=== PATIENT | female | born 1965 | race Caucasian/White ===

== ENCOUNTER 2019-06-03 09:34 | Outpatient (CLI) | payer OTHER ==
[2019-06-03] MEDS ORDERED: BUFFERED LIDOCAINE 10 ML SYRINGE ONE (09:47)
[2019-06-03] MEDS ORDERED: IOTHALAMATE MEGLUMINE 50 ML VIAL ONE (09:47)
[2019-06-03] MEDS ORDERED: GADOBUTROL 10 MMOL/10 ML VIAL ONE (09:47)
[2019-06-03] MEDS ORDERED: IOTHALAMATE MEGLUMINE 50 ML VIAL IVP ONE (11:51)
[2019-06-03] MEDS ORDERED: BUFFERED LIDOCAINE 10 ML SYRINGE IU ONE (11:51)
[2019-06-03] MEDS ORDERED: GADOBUTROL 10 MMOL/10 ML VIAL IVP ONE (11:51)
--- NOTE | 2019-06-03 13:26 | XRAY Report ---
Reason: PAIN IN KNEE Procedure Date: 06/03/2019 Accession Number: [id number] / [id number] Procedure: FL - Arthrogram Needle Placement CPT Code: Final Report FULL RESULT: EXAM: RIGHT KNEE ARTHROGRAPHIC INJECTION WITH FLUOROSCOPIC GUIDANCE EXAM DATE: 06/03/2019 10:11 AM. CLINICAL HISTORY: PAIN IN KNEE. COMPARISON: None. TECHNIQUE: The risks, benefits, and alternatives of the procedure were discussed with the patient. All questions were answered. Written and verbal consent were obtained. The right knee joint was marked under fluoroscopy and prepped and draped in a sterile manner. Local anesthesia was performed with 1% lidocaine. A 22-gauge needle was then inserted into the knee joint. 20 mL of a solution containing iodinated contrast, 1% lidocaine, and a 1:200 dilution of gadolinium contrast was then injected. The needle was removed without immediate complication. Other: None. Fluoroscopy Time: 1 minute 32 seconds. Number of Images: 2. FINDINGS: Bones and joints: No fracture or subluxation. Injection: Fluoroscopic images demonstrate needle placement and contrast in the knee joint. IMPRESSION: Successful fluoroscopically guided arthrographic injection of the right knee prior to MRI. RADIA
--- NOTE | 2019-06-03 14:34 | MRI Report ---
Reason: PAIN IN KNEE Procedure Date: 06/03/2019 Accession Number: [id number] / [id number] Procedure: MRI - Arthrogram Knee RT CPT Code: Final Report FULL RESULT: EXAM: RIGHT KNEE MRI ARTHROGRAM WITH CONTRAST EXAM DATE: 06/03/2019 11:18 AM. CLINICAL HISTORY: Pain in knee. Worsening medial knee pain for past few months. Swelling and instability. Meniscus repair surgery 2017. COMPARISON: None. TECHNIQUE: Multiplanar, multisequence T1-weighted and fluid-sensitive sequences of the knee after an arthrographic injection of dilute gadolinium, dictated under a separate exam. Other: None. FINDINGS: Bones: Moderate spurring medial femoral condyle. Mild spurring medial and lateral tibial plateau. Mild spurring anterior aspect lateral femoral condyle. Articular Cartilage: Severe chondromalacia medial tibiofemoral compartment. Moderate grade III chondromalacia patellar apex and medial patellar facet. Medial Meniscus: Diminutive medial meniscus body with altered morphology is consistent with history of meniscectomy. Negative for intrameniscal contrast signal to confirm re-tear. Lateral Meniscus: Small free edge tear lateral meniscus body. Cruciate Ligaments: The anterior and posterior cruciate ligaments are intact. Collateral Ligaments: The medial collateral and lateral collateral ligamentous structures are intact. Tendons: The quadriceps, patellar, semimembranosus, and popliteus tendons are unremarkable. Musculature: No edema or fatty atrophy. Other: No popliteal cyst. No loose bodies. The medial and lateral retinacula are intact. The subcutaneous tissues and fat pads are unremarkable. IMPRESSION: 1. Altered morphology diminutive medial meniscus body consistent with history of prior meniscectomy with no intrameniscal contrast signal to confirm re-tear. 2. Severe chondromalacia medial tibiofemoral compartment. 3. Moderate grade III chondromalacia patellar apex and medial patellar facet. 4. Moderate osteoarthritis medial tibiofemoral compartment. Kellgren Jose G grade 3. RADIA
== END 2019-06-03 09:35 | disposition home or self-care (01) ==
LOC: DI 09:34
PROVIDERS: ATTEND Family Medicine
DX: M22.41 Chondromalacia patellae, right knee (principal); M17.11 Unilateral primary osteoarthritis, right knee
CPT/HCPCS: 27369; 73722; 77002; A9585; Q9961

== ENCOUNTER 2021-03-31 12:07 | Emergency (ER) | payer OTHER ==
[2021-03-31 12:18] VITALS: BP 140/84
--- NOTE | 2021-03-31 12:48 | ED Physician Documentation ---
PD HPI LOWER EXT INJURY - Stated complaint Stated Complaint: LT ANKLE INJ - Chief complaint Chief Complaint: Trauma Ext - History obtained from History obtained from: Patient - History of Present Illness PD HPI LOW EXT INJURY LOCATION: Left, Ankle Type of injury: Twist Where injury occurred: Other (parking lot) Timing - onset: Last night Timing - duration: Days (1) Timing - details: Abrupt onset, Still present Improved by: Rest, Immobilization Worsened by: Moving, Palpating Associated symptoms: Swelling, Discolored. No: Weakness, Numbness, Tingling Contributing factors: No: Anticoagulated Similar symptoms before: Has not had sx before Recently seen: Not recently seen - Additional information Additional information: 56-year-old female was in the parking lot of [employer] last night when she walked through a little rojas and twisted her ankle. She had a lot of swelling associated with this she is having difficulty bearing weight and today she has been able to bear a little bit of weight. She is concerned about the possibility of a fracture and she has a lot of swelling associated with this. 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, Other - Present Medications Home Medications: Ambulatory Orders Medication Instructions Recorded Confirmed Albuterol Sulfate [Proair 90 mcg IH ONCE 08/22/15 09/01/15 Respiclick] Ascorbic Acid [Vitamin C] 1,000 mg PO DAILY 08/22/15 09/01/15 Cetirizine [ZyrTEC] 10 mg PO DAILY 08/22/15 09/01/15 Fluticasone 220 Mcg [Flovent] 2 puffs PO BID 08/22/15 09/01/15 Hypromellose [Artificial Tears] 15 ml OP DAILY 08/22/15 09/01/15 [place]-3S/Dha/Epa/Fish Oil [Fish 1 cap PO DAILY 08/22/15 09/01/15 Oil 1,200 mg Softgel] - Allergies Allergies/Adverse Reactions: Allergies Allergy/AdvReac Type Severity Reaction Status Date / Time surgical tape AdvReac Rash Uncoded 03/31/21 12:14 PD ED PE NORMAL - Vitals Vital signs reviewed: Yes (hypertensive) - General General: Alert and oriented X 3, No acute distress, Well developed/nourished - HEENT HEENT: Atraumatic, PERRL, EOMI - Respiratory Respiratory: No respiratory distress - Derm Derm: Normal color, Warm and dry, No rash - Extremities Extremities: Other (swelling and point tenderness to the lateral malleolus less so medially ) - Neuro Neuro: Alert and oriented X 3, septic tank cleaner 2-12 intact, No motor deficit, No sensory deficit, Normal speech Eye Opening: Spontaneous Motor: Obeys Commands Verbal: Oriented GCS Score: 15 - Psych Psych: Normal mood, Normal affect Results - Vitals Vitals: Vital Signs - 24 hr 03/31/21 12:14 Temperature 36.5 C Heart Rate 70 Respiratory 16 Rate Blood Pressure 140/84 H O2 Saturation 96 Oxygen O2 Source Room air - Rads (name of study) ankle Radiology: Prelim report reviewed (Impression: 1. No fracture or dislocation.), EMP read indepedently, See rad report Procedures - Splint (location) Left ankle Splint applied by: Tech Type of splint: Ankle airsplint Other: Patient tolerated well, No complications, Neurovascular intact, Good alignment PD MEDICAL DECISION MAKING - ED course Complexity details: reviewed results, re-evaluated patient, considered differential, d/w patient ED course: 56-year-old female with a sprained her ankle has no evidence of fracture on plain film she is placed into a Aircast. Departure - Departure Disposition: 01 Home, Self Care Clinical Impression: Ankle sprain Qualifiers: Encounter type: initial encounter Involved ligament of ankle: calcaneofibular ligament Laterality: left Qualified Code(s): S93.412A - Sprain of calcaneofibular ligament of left ankle, initial encounter Condition: Stable Instructions: ED Sprain Ankle W X Ray Follow-Up: KERRIE CHRISTIAN MD [Primary Care Provider] - Discharge Date/Time: 03/31/21 12:55
--- NOTE | 2021-03-31 13:24 | XRAY Report ---
PROCEDURE: Ankle 3 View LT INDICATIONS: Trauma TECHNIQUE: 3 views of the ankle were acquired. COMPARISON: None. FINDINGS: Bones: No fractures or dislocations. Ankle mortise is normally aligned. No suspicious bony lesions . Soft tissues: There is periarticular soft tissue swelling. No tibiotalar joint effusion. Achilles t endon appears normal. IMPRESSION: 1. No fracture or dislocation. Reviewed by: Modesto Shukla MD on 03/31/2021 12:23 PM [facility] [place] Approved by: Modesto Shukla MD on 03/31/2021 12:23 PM [facility] [place] Station ID: [id number]
== END 2021-03-31 12:55 | disposition home or self-care (01) ==
LOC: ED 12:07
DX: S93.412A Sprain of calcaneofibular ligament of left ankle, initial encounter (principal); X50.1XXA Overexertion from prolonged static or awkward postures, initial encounter; Y93.01 Activity, walking, marching and hiking; Y92.213 High school as the place of occurrence of the external cause
CPT/HCPCS: 29515; 99282

== ENCOUNTER 2021-04-02 03:59 | Emergency (ER) | payer OTHER ==
[2021-04-02 04:23] LABS: BASOPHILS # (AUTO) 0.1 10^3/uL (0.0-0.1); BASOPHILS % (AUTO) 0.5 %; EOSINOPHILS # (AUTO) 0.5 10^3/uL (0.0-0.7); EOSINOPHILS % (AUTO) 4.9 %; HCT - HEMATOCRIT 41.9 % (37.0-47.0); HGB - HEMOGLOBIN 13.5 g/dL (12.0-16.0); LYMPHOCYTES # (AUTO) 3.8 10^3/uL (1.5-3.5); LYMPHOCYTES % (AUTO) 40.6 %; MEAN CORPUSCULAR HEMOGLOBIN 28.5 pg (27.0-31.0); MEAN CORPUSCULAR HGB CONC 32.2 g/dL (32.0-36.0); MEAN CORPUSCULAR VOLUME 88.6 fL (81.0-99.0); MEAN PLATELET VOLUME 9.5 fL (7.9-10.8); MONOCYTES # (AUTO) 0.7 10^3/uL (0.0-1.0); MONOCYTES % (AUTO) 7.9 %; NEUTROPHILS # (AUTO) 4.3 10^3/uL (1.5-6.6); NEUTROPHILS % (AUTO) 45.9 %; PLT - PLATELET COUNT 301 10^3/uL (130-450); RED BLOOD COUNT 4.73 10^6/uL (4.20-5.40); RED CELL DISTRIBUTION WIDTH 12.5 % (12.0-15.0); WHITE BLOOD COUNT 9.4 x10^3/uL (4.8-10.8)
[2021-04-02 04:39] LABS: ALBUMIN 4.2 g/dL (3.2-5.5); ALBUMIN/GLOBULIN RATIO 1.2 (1.0-2.2); BILIRUBIN,TOTAL 0.6 mg/dL (0.2-1.0); CALCIUM 9.5 mg/dL (8.5-10.3); CREATININE 0.7 mg/dL (0.4-1.0); TOTAL PROTEIN 7.7 g/dL (6.7-8.2)
--- NOTE | 2021-04-02 05:09 | ED Physician Documentation ---
PD HPI CHEST PAIN - Stated complaint Stated Complaint: CHEST/THROAT PX - Chief complaint Chief Complaint: Cardiac - History obtained from History obtained from: Patient - History of Present Illness Timing - onset: Enter time (03:30), Today Timing - onset during: Rest Timing - details: Abrupt onset Pain level max: 4 Pain level now: 0 Quality: Tightness Location: Substernal Radiation: Neck (throat) Improved by: Nothing Worsened by: Other (no exacerbating factors) Associated symptoms: No: Shortness of air, Diaphoresis, Nausea, Vomiting, Feeli ng faint / dizzy, General Weakness, Palpitations, Cough Similar symptoms before: Has not had sx before Recently seen: Emergency Dept (T+R 2 days ago for ankle injury) - Additional information Additional information: c/o sudden onset midline chest pain at approximately 3:30 AM while lying in bed awake, described as tightness that radiated to her throat. The discomfort waxed and waned without exacerbating or ameliorating factors and resolved prior to arrival. Review of Systems Constitutional: reports: Reviewed and negative Cardiac: reports: Chest pain / pressure. 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, Other - Present Medications Home Medications: Ambulatory Orders Medication Instructions Recorded Confirmed Albuterol Sulfate [Proair 90 mcg IH ONCE 08/22/15 04/02/21 Respiclick] Ascorbic Acid [Vitamin C] 1,000 mg PO DAILY 08/22/15 04/02/21 Cetirizine [ZyrTEC] 10 mg PO DAILY 08/22/15 04/02/21 Fluticasone 220 Mcg [Flovent] 2 puffs PO BID 08/22/15 04/02/21 Hypromellose [Artificial Tears] 15 ml OP DAILY 08/22/15 04/02/21 [place]-3S/Dha/Epa/Fish Oil [Fish 1 cap PO DAILY 08/22/15 04/02/21 Oil 1,200 mg Softgel] - Allergies Allergies/Adverse Reactions: Allergies Allergy/AdvReac Type Severity Reaction Status Date / Time surgical tape AdvReac Rash Uncoded 03/31/21 12:14 - Social History Does the pt smoke?: No Smoking Status: Never smoker PD ED PE NORMAL - Vitals Vital signs reviewed: Yes - General General: Alert and oriented X 3, No acute distress, Well developed/nourished - Neck Neck: Supple, no meningeal sign - Cardiac Cardiac: RRR, No murmur - Respiratory Respiratory: No respiratory distress, Clear bilaterally - Abdomen Abdomen: Soft, Non tender - Derm Derm: Normal color, Warm and dry - Extremities Extremities: Other (left ankle edema) Results - Vitals Vitals: Oxygen O2 Source Room air - EKG (time done) No standard instances Rate: Rate (enter#) (65) Rhythm: NSR Harmony: LAD Intervals: Normal CT QRS: Normal Ischemia: Normal ST segments, Q waves (III, aVF) - Labs Labs: Laboratory Tests 04/02/21 04/02/21 04/02/21 04:18 04:18 04:18 WBC 9.4 RBC 4.73 Hgb 13.5 Hct 41.9 MCV 88.6 MCH 28.5 MCHC 32.2 RDW 12.5 Plt Count 301 MPV 9.5 Neut # (Auto) 4.3 Lymph # (Auto) 3.8 H Adams # (Auto) 0.7 Eos # (Auto) 0.5 Baso # (Auto) 0.1 Absolute Nucleated RBC 0.00 Nucleated RBC % 0.0 Sodium 136 Potassium 4.0 Chloride 99 L Carbon Dioxide 27 Anion Gap 10.0 BUN 14 Creatinine 0.7 Estimated GFR (MDRD) 87 L Glucose 112 H Calcium 9.5 Total Bilirubin 0.6 AST 30 ALT 57 Alkaline Phosphatase 84 Troponin I High Sens 3.0 Total Protein 7.7 Albumin 4.2 Globulin 3.5 Albumin/Globulin Ratio 1.2 Lipase 42 - Rads (name of study) Chest xray Radiology: Prelim report reviewed, See rad report PD MEDICAL DECISION MAKING - ED course Complexity details: reviewed old records, reviewed results, re-evaluated patient, considered differential, d/w patient ED course: presents with chest tightness that radiated to throat, 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 No concerning findings on EKG (Q waves III, aVF without ST changes), chest xray, or blood tests including high sensitivity troponin. Results d/w patient, return precautions discussed, advised to follow up with her primary care provider Departure - Departure Disposition: 01 Home, Self Care Clinical Impression: Chest pain Qualifiers: Chest pain type: unspecified Qualified Code(s): R07.9 - Chest pain, unspecified Condition: Good Instructions: ED Chest Pain Atypical Unkn Cause Comments: The results of tonight's tests are reassuring, with no concerning findings on blood tests, chest xray, EKG. As we discussed, you should follow up with your primary care provider, next available appointment. Further testing might be needed, at the discretion of your primary care provider. Discharge Date/Time: 04/02/21 06:08
[2021-04-02 05:56] VITALS: BP 145/72
--- NOTE | 2021-04-02 08:10 | XRAY Report ---
PROCEDURE: Chest 1 View X-Ray INDICATIONS: chest pain TECHNIQUE: One view of the chest was acquired. COMPARISON: None FINDINGS: Surgical changes and devices: None. Lungs and pleura: No pleural effusions or pneumothorax. Lungs are clear. Mediastinum: Mediastinal contours appear normal. Heart size is normal. Bones and chest wall: No suspicious bony lesions. Overlying soft tissues appear unremarkable. IMPRESSION: No acute cardiopulmonary disease process. Reviewed by: Karen Cyr MD, PhD on 04/02/2021 8:08 AM [facility] Approved by: Karen Cyr MD, PhD on 04/02/2021 8:08 AM [facility] Station ID: [id number]
== END 2021-04-02 06:08 | disposition home or self-care (01) ==
LOC: ED 03:59
DX: R07.89 Other chest pain (principal); I25.2 Old myocardial infarction
CPT/HCPCS: 36415; 80053; 83690; 84484; 85025; 93005; 99283; 99284

== ENCOUNTER 2021-06-14 07:50 | Outpatient (CLI) | payer OTHER ==
--- NOTE | 2021-06-14 08:23 | CARDIAC PROCEDURE NOTE ---
Stress Test Report Service Date: 06/14/21 Service Time: 08:00 Ordering Provider: Aaron Ramirez Indication for Test: Assess chest pain. Significant Medical History: For some time Leanna has had intermittent episodes of central substernal chest discomfort, occurring while resting, sometimes with radiation to her throat. It is not associated with diaphoresis, increased work of breathing or shortness of breath and sometimes is relieved by drinking water. She had a more significant episode in early March that persisted, prompting an E.D. visit for evaluation; EKG did not show ischemic changes and HS troponin was negative. She has a rather sedentary lifestyle, with exertion limited by various musculoskeletal conditions, but she has not had chest discomfort with exertion and does not recall any major pain episodes since the one that prompted E.D. evaluation. Cardiac Risk Factors: She reports that her younger brother had a stroke followed by some kind of chest surgery about 20 years ago, but she is unaware of any close family members with heart attack or coronary heart disease. History is negative for premature menopause, hypertension, hyperlipidemia, diabetes and prior smoking history. Type of Stress Test: ETT with Echocardiography Procedure: -Exercise Treadmill Test- After signing informed consent, the patient underwent resting echo imaging and then performed treadmill exercise using a Vitor protocol. The patient exercised for 6 minutes 30 seconds and achieved a peak heart rate of 145 (87 percent predicted maximum heart rate for age), and an estimated workload of 7.9 METS. The test was terminated due to fatigue/shortness of breath. Resting heart rate: 65 Peak heart rate: 145 Normal response to exercise. Resting BP: 156/94 Peak BP: 190/104 Hypertensive at rest with physiologic SBP increase with exercise and abnormal diastolic BP increase. Rhythm during exercise: Sinus rhythm throughout with rare isolated PVCs Symptoms: No chest discomfort was described. EKG at rest showed normal sinus rhythm with borderline first degree AV block (ZL=846 msec), with normal QRS/ST/T morphologies. EKG at peak stress showed no ischemia by EKG criteria. In Recovery heart rate rapidly/normally decreased to near baseline level, BP gradually decreased (161/83 at 5 minutes). Echo imaging was performed at rest and with stress will be reported separately. Cresencio Benavides MD, was present throughout this treadmill stress study and supervised it in its entirety. Summary: 1) Exercise tolerance mildly reduced for age as evidenced by SENA of 10.3%. 2) Normal resting EKG. 3) Adequate level of exercise was achieved on this treadmill stress test. 4) Hypertensive at rest with physiologic SBP response to exercise. 5) No ischemic changes by EKG criteria were seen at peak stress. 6) Echo image interpretation reveals normal left ventricular size and systolic function, with appropriate hyperdynamic augmentation of all segments with exercise, indicating no evidence of prior infarct or inducible ischemia. No morphologic valvular abnormalities or evidence of elevation in estimated pulmonary artery systolic pressure on rest echo screening. See separate report for more details. CONCLUSIONS: 1) Low risk treadmill stress echocardiogram, with no symptom, EKG or echo evidence of inducible ischemia. 2) Clinical picture suggests possible GI origin of symptoms, for which further evaluation might be pursued if symptoms recur.
== END 2021-06-14 07:51 | disposition home or self-care (01) ==
LOC: DI 07:50
PROVIDERS: ATTEND Family Medicine
DX: R07.9 Chest pain, unspecified (principal); I10 Essential (primary) hypertension
CPT/HCPCS: 93016; 93017; 93018; 93350

== ENCOUNTER 2021-06-28 09:49 | Outpatient (CLI) | payer OTHER ==
--- NOTE | 2021-06-28 15:52 | MRI Report ---
PROCEDURE: Cervical Spine W/O INDICATIONS: RIGHT UPPER ARM PAIN TECHNIQUE: Noncontrast sagittal T1 spin echo and T2 fast spin echo, sagittal STIR, foraminal oblique sagittal T2 fast spin echo, and axial gradient echo or T2 fast spin echo through the cervical spine. COMPARISON: None. FINDINGS: Image quality: Excellent. Alignment and Curvature: There is normal bony alignment. Bone Marrow: Marrow demonstrates normal overall signal. Spinal Cord: Visualized spinal cord has normal size and signal. No cerebellar tonsillar herniation. Paraspinous Soft Tissues: No paravertebral masses. Prevertebral soft tissues are normal in thicknes s. C2-C3: Normal in appearance. C3-C4: Diffuse disc bulge and disc osteophytes cause mild bilateral foraminal stenosis. Midline dis c osteophytes indent the anterior thecal sac. C4-C5: No significant disc bulge. Uncovertebral hypertrophy causes mild right foraminal stenosis. Mi dline disc osteophytes indent the anterior thecal sac. The left foramen and central canal are patent. C5-C6: Diffuse disc bulge, disc osteophytes, and uncovertebral hypertrophy cause mild right and mode rate left foraminal stenosis. The central canal has mild to moderate stenosis. There is ligamentum fl avum hypertrophy. C6-C7: Diffuse disc bulge, disc osteophytes, and uncovertebral hypertrophy cause mild bilateral fora earnest stenosis. The central canal has mild stenosis. C7-T1: Normal in appearance. IMPRESSION: 1. Multilevel degenerative disc disease causing foraminal and central canal stenosis as above. No foc al protrusion or extrusion. 2. No abnormal cord signal. Reviewed by: Joseluis Moreno on 06/28/2021 3:51 PM PST Approved by: Joseluis Moreno on 06/28/2021 3:51 PM PST Station ID: [id number]
== END 2021-06-28 09:50 | disposition home or self-care (01) ==
LOC: DI 09:49
PROVIDERS: ATTEND Student in an Organized Health Care Education/Training Program
DX: M79.621 Pain in right upper arm (principal); M50.31 Other cervical disc degeneration, high cervical region; M48.02 Spinal stenosis, cervical region

== ENCOUNTER 2021-08-27 13:32 | Outpatient (CLI) | payer OTHER ==
--- NOTE | 2021-08-27 17:14 | MRI Report ---
PROCEDURE: Ankle LT W/O INDICATIONS: LEFT ANKLE INJURY TECHNIQUE: Noncontrast Magnetic Resonance Imaging (MRI) of the ankle/hindfoot was performed utilizing the follow ing sequences: sagittal T1 spin echo, sagittal STIR, axial PD fast spin echo, axial T2 fast spin echo with fat saturation, coronal T2 spin echo with fat saturation, and coronal PD fast spin echo with fa t saturation. COMPARISON: Left ankle radiographs 03/31/2021 FINDINGS: Image quality: Excellent. Bones and joints: Mild osseous edema and subchondral cystic changes are seen in the anterior tibial plafond and with ov erlying cartilage loss. No disruption of the subchondral plate or loose osteochondral fragment is see n. The talar dome is intact. Mild degenerative changes of the second tarsometatarsal joint. Medial structures: The deltoid ligament and the spring ligament are intact. The posterior tibialis, flexor digitorum lori bradly, and flexor hallucis longus tendons are intact and within normal limits. The posterior tibial coty rovascular bundle appears normal within the tarsal tunnel, without extrinsic mass effect. Lateral structures: The anterior and posterior distal tibiofibular ligaments are intact. Chronic high-grade and likely co mplete tearing of the anterior talofibular ligament is noted. The calcaneofibular ligament also appea rs to be chronically torn. The posterior talofibular ligament is intact. The peroneus longus and bernardo neus brevis tendons demonstrates tendinosis and tenosynovitis. The sinus tarsi demonstrates normal fa tty signal. Anterior structures: The tibialis anterior, extensor hallucis longus, and extensor digitorum longus tendons appear intact. Posterior and plantar structures: The Achilles tendon is intact. Small nonedematous plantar calcaneal enthesophyte. The medial and late ral bands of the plantar fascia are within normal limits. No disproportionate atrophy of the abductor digiti minimi muscle. 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 2.Tendinosis and tenosynovitis of the peroneus brevis and longus tendons. 3.Focal full-thickness cartilage loss at the anterior tibial plafond and with subchondral cystic hernandez ges and edema. Reviewed by: Lion Lechuga MD on 08/27/2021 5:13 PM PDT Approved by: Lion Lechuga MD on 08/27/2021 5:13 PM PDT Station ID: [id number]
== END 2021-08-27 13:33 | disposition home or self-care (01) ==
LOC: DI 13:32
PROVIDERS: ATTEND Student in an Organized Health Care Education/Training Program
DX: S93.492A Sprain of other ligament of left ankle, initial encounter (principal); S93.412A Sprain of calcaneofibular ligament of left ankle, initial encounter; R60.0 Localized edema